=== PATIENT | female | born 1990 | race Caucasian/White ===

== ENCOUNTER 2020-08-03 11:21 | Emergency (ER) | payer BC, MEDICAID ==
[~2020-08-03] VITALS: Ht 154.9 cm; Wt 65.8 kg
[~2020-08-03 11:21] MED LIST: DIPH25CA66 PO; LEVA3NEB9 IN
[2020-08-03 11:41] VITALS: BP 114/85
== END 2020-08-03 13:33 | disposition home or self-care (01) ==
LOC: ER 11:21
DX: O12.05 Gestational edema, complicating the puerperium (principal); J45.909 Unspecified asthma, uncomplicated
CPT/HCPCS: 93971